=== PATIENT | female | born 1995 | race Caucasian/White ===

== ENCOUNTER 2021-08-10 22:25 | Emergency (ER) | payer BC ==
[~2021-08-10] VITALS: Ht 170.2 cm; Wt 59.0 kg
[2021-08-11] MEDS ORDERED: DEXTROAMP-AMPHE20 MG PO (00:13)
[2021-08-11] MEDS ORDERED: FLUOXETINE HCL40 MG PO (00:14)
[2021-08-11] MEDS ORDERED: DEXTROAMP-AMPHE10 MG PO (00:14)
[2021-08-11 01:40] LABS: ABSOLUTE NEUTROPHILS 11.5 thou/uL (1.4-8.2); BASOPHILS 0.1 % (0.0-2.0); EOSINOPHILS 0.2 % (0.0-3.0); HEMATOCRIT 40.8 % (37.0-47.0); LYMPHOCYTES 2.2 % (24.0-44.0); MCH 33.7 pg (26.0-34.0); MCHC 34.4 g/dL (28.0-37.0); MONOCYTES 4.9 % (1.0-8.0); PLATELET COUNT 286 thou/uL (150-400); POLYS 92.6 % (36.0-66.0); RBC 4.16 mil/uL (4.20-5.00); RDW 12.3 % (10.5-14.5); WBC 12.4 thou/uL (4.0-11.0)
[2021-08-11 02:05] LABS: ALBUMIN 4.3 g/dL (3.4-5.0); CALCIUM 9.2 mg/dL (8.5-10.1); POTASSIUM 4.3 mmol/L (3.5-5.1); TOTAL BILIRUBIN 0.6 mg/dL (0.2-1.0); TOTAL PROTEIN 7.6 g/dL (6.4-8.2)
[2021-08-11 02:41] LABS: URINE BILIRUBIN NEGATIVE (Negative); URINE BLOOD NEGATIVE (Negative); URINE CLARITY CLEAR; URINE COLOR YELLOW; URINE GLUCOSE-RANDOM* NEGATIVE (Negative); URINE KETONES TRACE (Negative); URINE LEUKOCYTES-REFLEX TRACE (Negative); URINE NITRITE-REFLEX NEGATIVE (Negative); URINE PROTEIN (DIPSTICK) NEGATIVE (Negative); URINE SPECIFIC GRAVITY 1.015 (1.005-1.035); URINE UROBILINOGEN 0.2 E.U./dl (0.2-1.0)
[2021-08-11] MEDS ORDERED: ZOFRAN ODT4 MG PO (04:09)
[2021-08-11 04:56] VITALS: BP 115/49
== END 2021-08-11 05:14 | disposition home or self-care (01) ==
LOC: ER 22:25
PROVIDERS: Emergency Medicine
DX: R11.2 Nausea with vomiting, unspecified (principal); Z20.822 Contact with and (suspected) exposure to COVID-19; E86.0 Dehydration; R73.9 Hyperglycemia, unspecified; F32.9 Major depressive disorder, single episode, unspecified; F41.9 Anxiety disorder, unspecified; Z79.899 Other long term (current) drug therapy